=== PATIENT | female | born 1930 | race Caucasian/White ===

== ENCOUNTER 2018-01-18 16:07 | Inpatient (IN) | payer OTHER ==
[~2018-01-18] VITALS: Ht 157.5 cm; Wt 78.0 kg
[~2018-01-18 16:07] MED LIST: ALBUTEROL INHAL17 GM IH; ARICEPT10 M1 PO; ARICEPT10 MG PO; ASPIRIN325; ASPIRIN81 M2 PO; ATIVAN1 MG PO; AVELOX 400 MG400 MG PO; BIAXIN 250MG T250 MG PO; CALCIUM CARBON500 M3 PO; CARVEDILOL12.5 MG PO; COUMADIN 2 MG TA2 M1 PO; CRESTOR5 MG PO; CYMBALTA60 MG PO; ETODOLAC; FIRST-LANSO3 MG/1 ML; GABAPENTIN100 MG PO; HCTZ PO; LANSOPRAZOLE15 MG PO; LANSOPRAZOLE30 MG PO; LEXAPRO; LODINE XL500 MG PO; MINIPRIN81 MG PO; NAMENDA; NAMENDA 5 MG TAB5 M1 PO; NAMENDA10 MG/5 ML; NEURONTIN 300300 M1 PO; NORTRIPTYLINE H25 M3; NORTRIPTYLINE H25 M3 PO; PAIN & FEVER325 MG PO; PAMELOR25 MG PO; PREMARIN1.25 MG; PREMARIN1.25 MG PO; PREVACID 24HR15 MG; PREVACID 30MG C30 M1 PO; PREVACID30 M2 PO; TRAMADOL 50 MG50 MG PO; TUMS PO; VERAMYST10 GM; XANAX 0.25 MG0.25 MG; XANAX 0.25 MG0.25 MG PO; ZOFRAN ODT4 MG PO
[2018-01-18 16:12] VITALS: BP 128/71
[2018-01-18] MEDS ORDERED: ANTIVERT25 MG PO (16:25)
[2018-01-18] MEDS ORDERED: CRANBERRY 12,61 EACH PO (16:27)
[2018-01-18] MEDS ORDERED: THERA TEARS NU1 EACH PO (16:27)
[2018-01-18] MEDS ORDERED: VITAMIN D3400 UNIT PO (16:28)
[2018-01-18 16:31] LABS: URINE BILIRUBIN NEGATIVE (Negative); URINE BLOOD NEGATIVE (Negative); URINE CLARITY CLEAR; URINE COLOR YELLOW; URINE GLUCOSE-RANDOM NEGATIVE (Negative); URINE KETONES TRACE (Negative); URINE NITRITE-REFLEX NEGATIVE (Negative); URINE PROTEIN TRACE (Negative); URINE UROBILINOGEN 0.2 E.U./dl (0.2-1.0)
[2018-01-18 16:32] LABS: URINE LEUKOCYTES-REFLEX 3+ (Negative)
[2018-01-18 16:37] LABS: SQUAMOUS >10 Many /LPF (0-3)
[2018-01-18 16:38] LABS: BACTERIA-REFLEX 1-9 Few /HPF (None Seen); CRYSTALS None Seen /LPF (None Seen); MUCUS None Seen strn/LPF (None Seen)
[2018-01-18 16:39] LABS: HYALINE CASTS 0-3 Few /LPF (None Seen)
[2018-01-18 16:40] LABS: URINE RBC None Seen /HPF (0-2)
[2018-01-18 16:42] LABS: ABSOLUTE EOSINOPHILS 0.6 thou/uL (0.0-0.7); ABSOLUTE LYMPHOCYTES 2.3 thou/uL (0.8-5.3); ABSOLUTE MONOCYTES 0.8 thou/uL (0.0-1.2); ABSOLUTE NEUTROPHILS 10.2 thou/uL (1.6-8.1); BASOPHILS 0.2 %; EOSINOPHILS 4.1 %; HEMATOCRIT 37.9 % (37.0-47.0); HEMOGLOBIN 12.4 gm/dL (12.0-15.0); LYMPHOCYTES 16.6 %; MCH 30.3 pg (26.0-34.0); MCHC 32.6 g/dL (28.0-37.0); MCV 92.9 fL (80.0-100.0); MONOCYTES 5.8 %; MPV 8.7 fl. (7.2-11.1); NUCLEATED RBCS 0 /100WBC; PLATELET COUNT* 203 thou/uL (150-400); POLYS 73.3 %; RBC 4.08 mil/uL (4.20-5.00); RDW-CV 14.8 % (10.5-14.5); WBC 13.9 thou/uL (4.0-11.0)
[2018-01-18 16:52] LABS: ANION GAP 8 mmol/L (7-16); BUN 25 mg/dL (7-18); CALCIUM 8.8 mg/dL (8.5-10.1); CHLORIDE 100 mmol/L (98-107); CO2 29 mmol/L (21-32); GLUCOSE 83 mg/dL (70-99); SODIUM 137 mmol/L (136-145)
[2018-01-18 16:53] LABS: INR 3.3; PROTIME 31.6 Seconds (9.20-11.50)
[2018-01-18 16:54] LABS: APTT 61.1 Seconds (25.0-31.3)
[2018-01-18 17:02] LABS: ALBUMIN 3.4 g/dL (3.4-5.0); ALKALINE PHOSPHATASE 80 U/L (46-116); NT-PRO BRAIN NAT PEPTIDE 963 pg/mL (<300); SGOT 21 U/L (15-37); SGPT 21 U/L (30-65); TOTAL BILIRUBIN 0.5 mg/dL (<0.1-1.0); TOTAL PROTEIN 7.3 g/dL (6.4-8.2); TROPONIN-I LEVEL <0.06 ng/mL (<0.06)
[2018-01-18 19:28] VITALS: BP 155/86
[2018-01-18 21:44] VITALS: BP 159/76
[2018-01-18 23:40] VITALS: BP 149/79
[2018-01-19 03:58] VITALS: BP 166/79
[2018-01-19 05:00] LABS: ABSOLUTE EOSINOPHILS 0.5 thou/uL (0.0-0.7); ABSOLUTE MONOCYTES 0.6 thou/uL (0.0-1.2); ABSOLUTE NEUTROPHILS 5.9 thou/uL (1.6-8.1); BASOPHILS 0.1 %; HEMATOCRIT 35.1 % (37.0-47.0); HEMOGLOBIN 11.6 gm/dL (12.0-15.0); LYMPHOCYTES 22.2 %; MCH 30.6 pg (26.0-34.0); MCV 92.9 fL (80.0-100.0); MONOCYTES 6.7 %; MPV 9.2 fl. (7.2-11.1); NUCLEATED RBCS 0 /100WBC; PLATELET COUNT* 174 thou/uL (150-400); RBC 3.78 mil/uL (4.20-5.00); RDW-CV 14.4 % (10.5-14.5)
[2018-01-19 05:02] LABS: INR 3.4; PROTIME 32.1 Seconds (9.20-11.50)
[2018-01-19 05:15] LABS: CALCIUM 8.3 mg/dL (8.5-10.1); CREATININE 1.7 mg/dL (0.6-1.3); POTASSIUM 4.2 mmol/L (3.5-5.1)
[2018-01-19 07:34] VITALS: BP 155/81
[2018-01-19 11:19] VITALS: BP 189/78
--- NOTE | 2018-01-19 11:25 | EKG ---
[place] [address] ELECTROCARDIOGRAM REPORT Name: LUL KEBEDEJORITru Salmon Room: [address] ADM IN .R.#: [id number] Admission: 01/18/18 Attend Phys: Kevin James MD Discharge: Date of : 32 Report #: [id number] THIS REPORT FOR: //name// [facility] ED Test Date: 2018-01-18 Test Time: 16:40:38 Pat Name: MUKESH KEBEDE Department: Room: [facility] Gender: F Stemmer Machine: Jhon TOLLIVER : 1930 Requested By: Sincere Mariee Order Number: [id number] MD: Israel Maldonado Measurements Intervals [place] Rate: 79 P: 41 DE: 168 QRS: -52 QRSD: 111 T: 94 QT: 384 QTc: 441 Interpretive Statements Sinus rhythm early transition left axis LVH with IVCD, LAD and secondary repol abnrm Baseline wander in lead(s) V6 Compared to ECG 02/12/2014 13:07:54 no change Electronically Signed On 01-19-2018 11:25:05 CDT by Israel Maldonado [email or web address] <ELECTRONICALLY SIGNED> By: Israel Maldonado MD, FACC 01/19/18 1125 1640 1640 Israel Maldonado MD, FAC /EPI
[2018-01-19 16:07] VITALS: BP 117/56
[2018-01-19 21:45] VITALS: BP 154/70
[2018-01-19 23:39] VITALS: BP 172/78
[2018-01-20 03:09] VITALS: BP 139/58
[2018-01-20 04:31] LABS: ABSOLUTE EOSINOPHILS 0.2 thou/uL (0.0-0.7); ABSOLUTE LYMPHOCYTES 1.4 thou/uL (0.8-5.3); ABSOLUTE MONOCYTES 0.6 thou/uL (0.0-1.2); BASOPHILS 0.1 %; EOSINOPHILS 2.4 %; HEMATOCRIT 32.7 % (37.0-47.0); HEMOGLOBIN 10.5 gm/dL (12.0-15.0); LYMPHOCYTES 14.9 %; MCH 30.3 pg (26.0-34.0); MCHC 32.2 g/dL (28.0-37.0); MCV 94.2 fL (80.0-100.0); MONOCYTES 6.3 %; MPV 8.9 fl. (7.2-11.1); NUCLEATED RBCS 0 /100WBC; PLATELET COUNT* 169 thou/uL (150-400); POLYS 76.3 %; RBC 3.47 mil/uL (4.20-5.00); RDW-CV 14.6 % (10.5-14.5); WBC 9.1 thou/uL (4.0-11.0)
[2018-01-20 04:47] LABS: PROTIME 18.8 Seconds (9.20-11.50)
[2018-01-20 04:57] LABS: INR 1.9
[2018-01-20 05:08] LABS: ALBUMIN 2.8 g/dL (3.4-5.0); CALCIUM 8.1 mg/dL (8.5-10.1); CREATININE 1.5 mg/dL (0.6-1.3); POTASSIUM 4.2 mmol/L (3.5-5.1); TOTAL BILIRUBIN 0.3 mg/dL (<0.1-1.0); TOTAL PROTEIN 5.4 g/dL (6.4-8.2)
[2018-01-20 08:20] VITALS: BP 173/84
[2018-01-20 12:00] VITALS: BP 150/72
[2018-01-20 13:49] VITALS: BP 150/72
[2018-01-20] MEDS ORDERED: CIPRO250 M1 PO (13:56)
--- NOTE | 2018-01-30 17:26 | CON ---
[address] [address] CONSULTATION Name: MUKESH KEBEDE Room: [address].#: [id number] Admission: 01/18/18 Attend Phys: Kevin James MD Discharge: 01/20/18 Date of : 32 Report #: [id number] THIS REPORT FOR: //name// CC: Kevin Soriano Ash DATE OF SERVICE: 01/19/2018 HISTORY OF PRESENT ILLNESS: This is an 87-year-old female patient who was evaluated by me for any neurological etiology for the patient's generalized weakness. She indicated that she developed some bladder infection and she had generalized weakness. She is feeling much better and in fact feels back to her baseline. When this weakness was there, she felt pretty severely weak. She never had this kind of symptom before. She never had any focal symptoms. REVIEW OF SYSTEMS: Indicate she is admitted with urinary tract infection. She had some what she described as fluid in the legs. She was admitted with leukocytosis. She does have a kidney problem. She feels back to her baseline. I carried out her 14-point review of system and this was her relevant 14-point review of system. PAST MEDICAL HISTORY: Negative for this kind of problem. FAMILY HISTORY: Negative for early age stroke. SOCIAL HISTORY: She does not smoke. PHYSICAL EXAMINATION: Indicate she is alert. She is responsive. She can follow simple commands. Her memory is somewhat diminished, but she indicated that is her baseline. Cranial nerve examination 2-12 looks unremarkable. Her strength, sensation, reflexes looks totally symmetrical. There is no cerebellar sign. Cardiac examination is unremarkable. No respiratory difficulty or rhonchi. She is reasonably well-developed and nourished individual. She does not have any dysmorphic features of eyes, ears and face. She does not have any vision or hearing problem, which interfere with her activity. Her vital signs indicate a blood pressure 117/56, respirations 16, pulse is 92, temperature is 98.4. LABORATORY DATA: White count is 9.0. She did have a CT scan of the head, which is unremarkable. IMPRESSION: It would appear that the patient's symptoms were secondary to urinary tract infection and she is getting better. Her TSH is low and I will also suggest checking her B12 level. She does have other problems and does look like she is on some dementia medication. I did not address that and confine myself just to the generalized weakness she has. [place] [address] CONSULTATION Name: MUKESH KEBEDE Room: [address] IN [facility]#: [id number] Admission: 01/18/18 Attend Phys: Kevin James MD Discharge: 01/20/18 Date of : 32 Report #: [id number] desired, please call us back or refer her to whoever is prescribing her medication because they will have the record. The patient will prefer to do that. <ELECTRONICALLY SIGNED> By: Arpit Araya MD 01/30/18 1726 [id number] 194Arpit Araya MD /nt
== END 2018-01-20 14:50 | disposition home or self-care (01) | DRG 682 ==
LOC: M.ERS 16:07 → M.TBA-ER 17:10 → M.3W 17:10
PROVIDERS: Family Medicine; ADMIT Internal Medicine
DX: N17.9 Acute kidney failure, unspecified (principal); R65.11 Systemic inflammatory response syndrome (SIRS) of non-infectious origin with acute organ dysfunction; N39.0 Urinary tract infection, site not specified; E44.0 Moderate protein-calorie malnutrition; K21.9 Gastro-esophageal reflux disease without esophagitis; N18.9 Chronic kidney disease, unspecified; R26.9 Unspecified abnormalities of gait and mobility; E86.0 Dehydration; F32.9 Major depressive disorder, single episode, unspecified; F03.90 Unspecified dementia, unspecified severity, without behavioral disturbance, psychotic disturbance, mood disturbance, and anxiety; Z88.0 Allergy status to penicillin; Z88.2 Allergy status to sulfonamides; Z68.31 Body mass index [BMI] 31.0-31.9, adult; Z79.82 Long term (current) use of aspirin; Z79.01 Long term (current) use of anticoagulants; Z79.899 Other long term (current) drug therapy; Z90.710 Acquired absence of both cervix and uterus; Z87.19 Personal history of other diseases of the digestive system

== ENCOUNTER 2018-07-19 12:49 | Emergency (ER) | payer OTHER ==
[~2018-07-19] VITALS: Ht 160 cm; Wt 77.1 kg
[~2018-07-19 12:49] MED LIST changes: +ANTIVERT25 MG PO; +CIPRO250 M1 PO; +CRANBERRY 12,61 EACH PO; +THERA TEARS NU1 EACH PO; +VITAMIN D3400 UNIT PO
[2018-07-19 13:33] VITALS: BP 97/56
== END 2018-07-19 13:34 | disposition home or self-care (01) ==
LOC: M.ERS 12:49
DX: S61.412A Laceration without foreign body of left hand, initial encounter (principal); S80.11XA Contusion of right lower leg, initial encounter; K21.9 Gastro-esophageal reflux disease without esophagitis; F32.9 Major depressive disorder, single episode, unspecified; G62.9 Polyneuropathy, unspecified; F03.90 Unspecified dementia, unspecified severity, without behavioral disturbance, psychotic disturbance, mood disturbance, and anxiety; Z85.038 Personal history of other malignant neoplasm of large intestine; Z85.828 Personal history of other malignant neoplasm of skin; Z88.0 Allergy status to penicillin; Z88.2 Allergy status to sulfonamides; Z87.442 Personal history of urinary calculi; Z90.710 Acquired absence of both cervix and uterus; Z90.49 Acquired absence of other specified parts of digestive tract; W01.0XXA Fall on same level from slipping, tripping and stumbling without subsequent striking against object, initial encounter; Y93.89 Activity, other specified; Y92.89 Other specified places as the place of occurrence of the external cause; Y99.8 Other external cause status

== ENCOUNTER → 2018-12-25 | Outpatient (CLI) | payer OTHER | LOC: M.RAD 15:45 | DX: M25.561 Pain in right knee (principal); Z91.81 History of falling ==

== ENCOUNTER 2019-02-08 11:02 | Inpatient (IN) | payer OTHER ==
[~2019-02-08] VITALS: Ht 167.6 cm; Wt 75.4 kg
[2019-02-08 11:02] VITALS: BP 186/115
[~2019-02-08 11:02] MED LIST changes: -COUMADIN 2 MG TA2 M1 PO; +COUMADIN 4 MG TA4 M1 PO
[2019-02-08 11:19] LABS: URINE BILIRUBIN NEGATIVE (Negative); URINE BLOOD NEGATIVE (Negative); URINE CLARITY CLEAR; URINE COLOR YELLOW; URINE GLUCOSE-RANDOM NEGATIVE (Negative); URINE KETONES TRACE (Negative); URINE LEUKOCYTES-REFLEX NEGATIVE (Negative); URINE NITRITE-REFLEX NEGATIVE (Negative); URINE PROTEIN NEGATIVE (Negative); URINE SPECIFIC GRAVITY 1.015 (1.005-1.030); URINE UROBILINOGEN 0.2 E.U./dl (0.2-1.0)
[2019-02-08 11:22] LABS: ABSOLUTE BASOPHILS 0.1 thou/uL (0.0-0.2); ABSOLUTE EOSINOPHILS 0.1 thou/uL (0.0-0.7); ABSOLUTE LYMPHOCYTES 1.3 thou/uL (0.8-5.3); ABSOLUTE MONOCYTES 0.4 thou/uL (0.0-1.2); ABSOLUTE NEUTROPHILS 7.5 thou/uL (1.6-8.1); BASOPHILS 0.7 %; EOSINOPHILS 0.7 %; HEMATOCRIT 37.5 % (37.0-47.0); HEMOGLOBIN 12.1 gm/dL (12.0-15.0); LYMPHOCYTES 13.6 %; MCH 30.7 pg (26.0-34.0); MCHC 32.4 g/dL (28.0-37.0); MCV 94.9 fL (80.0-100.0); MPV 8.1 fl. (7.2-11.1); NUCLEATED RBCS 0 /100WBC; PLATELET COUNT* 218 thou/uL (150-400); RBC 3.95 mil/uL (4.20-5.00); WBC 9.3 thou/uL (4.0-11.0)
[2019-02-08 11:40] LABS: ALBUMIN 3.5 g/dL (3.4-5.0); ALKALINE PHOSPHATASE 68 U/L (46-116); ANION GAP 10 mmol/L (7-16); BUN 30 mg/dL (7-18); CALCIUM 9.6 mg/dL (8.5-10.1); CHLORIDE 106 mmol/L (98-107); CO2 27 mmol/L (21-32); CREATININE 1.5 mg/dL (0.6-1.3); GLUCOSE 104 mg/dL (70-99); LIPASE 1085 U/L (73-393); POTASSIUM 4.5 mmol/L (3.5-5.1); SGOT 34 U/L (15-37); SGPT 28 U/L (30-65); SODIUM 143 mmol/L (136-145); TOTAL BILIRUBIN 0.4 mg/dL (<0.1-1.0); TOTAL PROTEIN 7.1 g/dL (6.4-8.2); TROPONIN-I LEVEL <0.06 ng/mL (<0.06)
[2019-02-08 16:13] LABS: INR 2.5; PROTIME 25.1 Seconds (9.20-11.50)
[2019-02-08 17:12] VITALS: BP 184/76
[2019-02-08 17:13] VITALS: BP 144/81
[2019-02-08 19:00] LABS: AMP/METHAMP Negative (Negative); BARBITURATES Negative (Negative); BENZODIAZEPINES Negative (Negative); COCAINE Negative (Negative); METHADONE Negative (Negative); OPIATES Negative (Negative); PCP Negative (Negative); THC Negative (Negative)
[2019-02-08 20:00] VITALS: BP 141/81
[2019-02-09] VITALS: BP 162/83
[2019-02-09 05:15] LABS: ABSOLUTE LYMPHOCYTES 1.3 thou/uL (0.8-5.3); ABSOLUTE MONOCYTES 0.6 thou/uL (0.0-1.2); BASOPHILS 0.5 %; EOSINOPHILS 0.5 %; HEMATOCRIT 31.6 % (37.0-47.0); HEMOGLOBIN 10.4 gm/dL (12.0-15.0); MCH 31.3 pg (26.0-34.0); MCHC 32.9 g/dL (28.0-37.0); MONOCYTES 7.7 %; MPV 7.9 fl. (7.2-11.1); NUCLEATED RBCS 0 /100WBC; PLATELET COUNT* 217 thou/uL (150-400); POLYS 75.3 %; RBC 3.33 mil/uL (4.20-5.00); RDW-CV 16.2 % (10.5-14.5)
[2019-02-09 05:40] LABS: INR 2.4; PROTIME 24.1 Seconds (9.20-11.50)
[2019-02-09 05:49] LABS: ALKALINE PHOSPHATASE 54 U/L (46-116); ANION GAP 6 mmol/L (7-16); BUN 39 mg/dL (7-18); CALCIUM 8.7 mg/dL (8.5-10.1); CHLORIDE 108 mmol/L (98-107); CHOLESTEROL 136 mg/dL (<200); CO2 30 mmol/L (21-32); CREATININE 1.7 mg/dL (0.6-1.3); GLUCOSE 98 mg/dL (70-99); HDL CHOLESTEROL 57 mg/dL (>40); LDL CHOLESTEROL 57 mg/dL (<100); LIPASE 126 U/L (73-393); PHOSPHORUS* 4.1 mg/dL (2.5-4.9); POTASSIUM 4.1 mmol/L (3.5-5.1); SGOT 21 U/L (15-37); SGPT 25 U/L (30-65); SODIUM 144 mmol/L (136-145); TC:HDL 2.4 Ratio (Not establshd); TOTAL BILIRUBIN 0.3 mg/dL (<0.1-1.0); TRIGLYCERIDE 114 mg/dL (<150); VLDL 23 mg/dL (<40)
[2019-02-09 05:54] LABS: SERUM ASSESSMENT Clear
[2019-02-09 07:30] VITALS: BP 140/63
[2019-02-09 12:00] VITALS: BP 146/70
--- NOTE | 2019-02-09 12:29 | EKG ---
[place] [address] ELECTROCARDIOGRAM REPORT Name: MUKESH KEBEDE Room: [address] ADM IN [facility].#: [id number] Admission: 02/08/19 Attend Phys: Kevin James MD Discharge: Date of : 32 Report #: [id number] THIS REPORT FOR: //name// [facility] ED Test Date: 2019-02-08 Test Time: 11:08:26 Pat Name: MUKESH KEBEDE Department: Room: [facility] Gender: F Ripsaw Matcher: Shayne MESSINA : 1930 Requested By: Rekha Almeida Order Number: [id number] MD: Jarrell Hammer Measurements Intervals [place] Rate: 94 P: 60 IN: 163 QRS: -53 QRSD: 109 T: 97 QT: 354 QTc: 443 Interpretive Statements Sinus rhythm Left anterior fascicular block Abnormal R-wave progression, early transition LVH with secondary repolarization abnormality Compared to ECG 01/18/2018 16:40:38 Left anterior fascicular block now present Intraventricular conduction delay no longer present Electronically Signed On 02-09-2019 12:29:08 CDT by Jarrell Hammer [email or web address] <ELECTRONICALLY SIGNED> By: Jarrell Hammer MD, [facility] 02/09/19 1229 1108 1108 Jarrell Hammer MD, FAC /EPI
[2019-02-09 20:00] VITALS: BP 156/76
[2019-02-10 04:00] VITALS: BP 149/70
[2019-02-10 05:14] LABS: ABSOLUTE MONOCYTES 0.4 thou/uL (0.0-1.2); ABSOLUTE NEUTROPHILS 4.7 thou/uL (1.6-8.1); BASOPHILS 0.3 %; EOSINOPHILS 0.6 %; HEMATOCRIT 28.7 % (37.0-47.0); HEMOGLOBIN 9.4 gm/dL (12.0-15.0); LYMPHOCYTES 15.7 %; MCH 30.9 pg (26.0-34.0); MCHC 32.6 g/dL (28.0-37.0); MCV 94.6 fL (80.0-100.0); MPV 8.2 fl. (7.2-11.1); NUCLEATED RBCS 0 /100WBC; PLATELET COUNT* 178 thou/uL (150-400); POLYS 76.4 %; RBC 3.03 mil/uL (4.20-5.00); RDW-CV 15.8 % (10.5-14.5); WBC 6.2 thou/uL (4.0-11.0)
[2019-02-10 05:20] LABS: INR 2.9; PROTIME 29.4 Seconds (9.20-11.50)
[2019-02-10 05:44] LABS: ALBUMIN 2.8 g/dL (3.4-5.0); CALCIUM 8.3 mg/dL (8.5-10.1); CREATININE 1.6 mg/dL (0.6-1.3); POTASSIUM 4.2 mmol/L (3.5-5.1); TOTAL BILIRUBIN 0.2 mg/dL (<0.1-1.0); TOTAL PROTEIN 5.6 g/dL (6.4-8.2)
[2019-02-10 06:34] LABS: ESR (SEDRATE) 26 mm/hr (0-30)
[2019-02-10 07:30] VITALS: BP 152/72
[2019-02-10 12:52] VITALS: BP 152/72
--- NOTE | 2019-02-18 15:46 | CON ---
[address] [address] CONSULTATION Name: MUKESH KEBEDE Room: [address] IN M.R.#: [id number] Admission: 02/08/19 Attend Phys: Kevin James MD Discharge: 02/10/19 Date of : 32 Report #: [id number] THIS REPORT FOR: //name// CC: Kevin Roth Dejan DATE OF SERVICE: 02/09/2019 REFERRING PHYSICIAN: Kevin James MD REASON FOR CONSULTATION: Abdominal pain. IMPRESSION: 1. Upper abdominal pain of uncertain etiology. 2. Elevated lipase without any evidence to suggest pancreatitis on CT scan. 3. Anemia of chronic disease. 4. 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 5. Personal history of colon cancer in early , recurrent sigmoid resection with primary anastomosis with her last colonoscopy being done in 05/2014 - the patient had 18 tubular adenomas. She has not had surveillance examinations since that time. 6. Mild dementia. 7. Abnormal CAT scan suggestive of gallbladder sludge and/or stones within the same. RECOMMENDATIONS: 1. Agree with surgery to advance diet as tolerated. 2. We will check an abdominal ultrasound to monitor for possible cholelithiasis as this could be a source for her abdominal pain. 3. We will hold off on any endoscopic studies at this point in time including upper endoscopy, ERCP. 4. Further recommendation will be made after abdominal ultrasound is performed. I have discussed the plans with the patient as well and she is agreeable to the same; however, the patient has ___ her heart failure and going home tomorrow. HISTORY OF PRESENT ILLNESS: The patient is a pleasant 88-year-old white female well known to me from multiple evaluations in the past who was admitted to hospital with complaints of abdominal pain after she had eaten some spicy food from chipotle. She states that the pain was mostly in the epigastric area without any nausea, vomiting or any other issues. She has never had this kind of pain in the past. She has longstanding history of having a large hiatal hernia, which has not required surgical intervention. [place] [address] CONSULTATION Name: MUKESH KEBEDE Room: [address]#: [id number] Admission: 02/08/19 Attend Phys: Kevin James MD Discharge: 02/10/19 Date of : 32 Report #: [id number] of the same including upper endoscopies, which revealed evidence for the same. She has been seen by our practice as late as back in 2013. She has undergone endoscopic studies of upper and lower GI tract in the past, which have revealed evidence for the same. She is admitted to the hospital for further evaluation and treatment. ALLERGIES: PENICILLIN AND SULFA. MEDICATIONS: Include Aricept, Cymbalta, aspirin, Antivert, vitamin D, Coumadin, nortriptyline, Ami, Neurontin and TheraTears. PAST MEDICAL AND SURGICAL HISTORY: Remarkable for some dementia, anxiety, depression, problems with chronic atrial fibrillation. She has a history of appendectomy, hysterectomy. She had colon cancer as mentioned above with previous colon resection. She had a large hiatal hernia. She has also had blood clots in her legs and in her lung. SOCIAL HISTORY: She is a former smoker. She does not drink alcohol. FAMILY HISTORY: Negative. PHYSICAL EXAMINATION: GENERAL: Pleasant 87-year-old white female who is in no major distress at this time. CARDIOPULMONARY: Revealed a regular rate and rhythm. LUNGS: Clear. ABDOMEN: Soft. She was mildly tender in the epigastric area. No rebound or guarding noted. LABORATORY TESTS: Revealed a white count of 9.3, hemoglobin 12.1, platelet count 218,000. Her sodium 143, potassium 4.5, chloride 106, bicarbonate is 27, BUN 30, creatinine 1.5. Her bilirubin 0.4, alkaline phosphatase 68, AST 34, ALT 28, albumin is 3.5. Her lipase on admission was 1085. Protime is 25.1 with INR of 2.5. CT scan of the abdomen and pelvis revealed large area of most of her stomach up in the lower chest. Gallbladder extends due to suspected extensive small gallstones with nothing for biliary obstruction. The pancreas is partially coiled upon itself resulting in a "pancreatic ball" without any mass or inflammatory changes noted. The liver is enlarged. DISCUSSION: At the present time, the patient has had problems with what appears to be pancreatitis. We will proceed with an abdominal ultrasound to confirm whether or not she has stones or not and await her response to diet. I have [address] [address] CONSULTATION Name: MUKESH KEBEDE Room: [address] IN .R.#: [id number] Admission: 02/08/19 Attend Phys: Kevin James MD Discharge: 02/10/19 Date of : 32 Report #: [id number] discussed the plans with the patient as well and the patient is agreeable to the same. <ELECTRONICALLY SIGNED> By: Chuck Contreras DO 02/18/19 1546 1037 [id number] Contreras DO /nt
== END 2019-02-10 14:25 | disposition home or self-care (01) | DRG 439 ==
LOC: M.ERS 11:02 → M.TBA-ER 13:39 → M.2W 16:50
PROVIDERS: Internal Medicine Gastroenterology; Physician Assistant; Surgery; ADMIT Internal Medicine
DX: K85.90 Acute pancreatitis without necrosis or infection, unspecified (principal); N17.9 Acute kidney failure, unspecified; N18.4 Chronic kidney disease, stage 4 (severe); K21.9 Gastro-esophageal reflux disease without esophagitis; G62.9 Polyneuropathy, unspecified; F03.90 Unspecified dementia, unspecified severity, without behavioral disturbance, psychotic disturbance, mood disturbance, and anxiety; F32.9 Major depressive disorder, single episode, unspecified; K44.9 Diaphragmatic hernia without obstruction or gangrene; I12.9 Hypertensive chronic kidney disease with stage 1 through stage 4 chronic kidney disease, or unspecified chronic kidney disease; D63.8 Anemia in other chronic diseases classified elsewhere; K29.00 Acute gastritis without bleeding; K80.20 Calculus of gallbladder without cholecystitis without obstruction; Z90.710 Acquired absence of both cervix and uterus; Z90.49 Acquired absence of other specified parts of digestive tract; Z87.891 Personal history of nicotine dependence; Z85.038 Personal history of other malignant neoplasm of large intestine; Z88.0 Allergy status to penicillin; Z88.2 Allergy status to sulfonamides; Z79.82 Long term (current) use of aspirin; Z79.899 Other long term (current) drug therapy; Z83.79 Family history of other diseases of the digestive system; Z82.49 Family history of ischemic heart disease and other diseases of the circulatory system; Z83.6 Family history of other diseases of the respiratory system

== ENCOUNTER 2021-03-27 17:30 | Inpatient (IN) | payer OTHER ==
[~2021-03-27] VITALS: Ht 167.6 cm; Wt 75.4 kg
--- NOTE | ~2021-03-27 | OP ---
[address] [id number] OPERATIVE REPORT Name: MUKESH KEBEDE Room: [address] IN [facility]#: [id number] Admission: 03/27/21 Attend Phys: Kevin James MD Discharge: Date of : 32 Report #: [id number] THIS REPORT FOR: cc: Bo Aleman Bradley L. DO Kesl, James B. DO ~ DOC #: [id number] Bhavik Badillo DO DATE OF SURGERY: 03/29/2021 PREOPERATIVE DIAGNOSIS: Right displaced femoral neck fracture. POSTOPERATIVE DIAGNOSIS: Right displaced femoral neck fracture. PROCEDURE: Right hip arthroplasty. SURGEON: Bhavik Badillo DO ASSISTANTS: 1. Mark Gold DO 2. Tres Hollins DO 3. Sridhar Vidales DO. ANESTHESIA: General. ANTIBIOTICS: Ancef IV. FLUIDS: Please see anesthesia notes. BLOOD LOSS: 200 mL. COMPLICATIONS: None. SPECIMENS: None. DRAINS: None. CONDITION: The patient is stable to PACU. IMPLANTS: Patt Echo press-fit stem size 14 standard offset 46 bipolar head with +6 neck adaptor. INDICATIONS FOR PROCEDURE: Displaced femoral neck fracture. DESCRIPTION OF PROCEDURE: I marked the right lower extremity in the presence of operative team members, everyone agreed. She was taken back to the operative [address] [place] [address] OPERATIVE REPORT Name: MUKESH KEBEDE Room: [address] IN ..#: [id number] Admission: 03/27/21 Attend Phys: Kevin James MD Discharge: Date of : 32 Report #: [id number] suite, general anesthetic administered, transferred to the operating table, placed on to the left lateral decubitus position, well padded and secured. Right lower extremity was sterilely prepped and draped in standard fashion. Timeout performed, indicating correct patient, procedure, site, antibiotics and that implants were present and sterile. All team members agreed. Anterolateral approach used. Scalpel through skin, full thickness flaps down to the IT band and fascia. Charnley retractor placed. Fluids taken off the trochanter with a cuff of tissue for repair and also leaving some attached to the tip. Capsule as another layer. T capsulotomy leaving labrum undisturbed, cleaned up the neck, with a reciprocating saw one fingerbreadth above the lesser, removed head and neck. This appeared to be a standard appearance of osteoporotic fracture, sized on the back table as a 46, trialed 46, this was appropriate. Good fit within the acetabulum. Began preparing the femur, box osteotome, canal finder, broach for lateralization as well as sequential fit. After distal reaming, size 14 was appropriate standard offset based on preoperative templating. We knew that she would have a long neck due to her valgus appearance. We therefore began with a +3. This overall has had some okay stability, but leg lengths were still short. We therefore trialed a +6. This was appropriate for leg length, had no instability found whatsoever. We then removed all those trial components. The final 14 Echo press-fit stem was implanted after irrigation down the canal with normal saline, sat at the same location. We therefore placed a final +6 neck adaptor with 46 bipolar head and engaged the Currie taper. Final components in place, removed any debris or fluid from within the acetabulum, reduced the hip for the final time. With the final components in place, we took it through range of motion, it was excellent and stable throughout all planes. Leg lengths appeared equal. We irrigated with normal saline, confirmed hemostasis, maintained, began closure. Capsule closed with #1 Vicryl, gluteus closed with through-bone sutures, #5 Ti-Cron, oversewn with #1 Vicryl, fascia and IT band closed with #1 Vicryl and oversewn with #1 Stratafix, subcu with 2-0 Monocryl, skin with 3-0 Stratafix with Dermabond glue. Debriefing performed confirming procedure, blood loss and that all counts were correct and final team members agreed. A sterile silver dressing applied. She was transferred off the operating table supine on her bed, leg lengths were appropriate, abductor pillow placed, extubated and taken to PACU stable. POSTOPERATIVE COURSE AND EVALUATION: I have made attempts to contact the daughter who I had spoken with prior to surgery, did not get any answer, left voicemail, we will continue to call. The patient was resting in PACU, stable vital signs, pain controlled, neurovascularly intact, compartments are soft and compressible. No obvious signs of DVT. PACU films showed stable prosthesis in good position and alignment. No fracture or dislocation. Weightbear as tolerated, anterolateral hip precautions, PT and OT. She will resume warfarin, which will be good for her DVT prophylaxis as well as mechanical measures. COVID protocol followed at all times. [address] [address] OPERATIVE REPORT Name: DELIOMUKESH Salmon Room: [address]#: [id number] Admission: 03/27/21 Attend Phys: Kevin James MD Discharge: Date of : 32 Report #: [id number] DO CHAD Garcia By: [id number] Badillo DO /jeanie
--- NOTE | ~2021-03-27 | EMS ---
[place] [address] EMS Patient Care Report Name: MUKESH KEBEDE Room: [address] IN [facility]#: [id number] Admission: 03/27/21 Attend Phys: Kevin James MD Discharge: Date of : 32 Report #: [id number] THIS REPORT FOR: //name// Report Transmitted: 03/27/2021 19:18 EMS Care Summary [facility] [employer] [facility] Incident [id number] @ 03/27/2021 16:42 Incident Location [address] [place] [address] Patient MKUESH KEBEDE Female, 89 Years 1930 Patient Address [address] [place] [address] Patient Allergies Penicillin allergy,Sulfa, Patient Medications Warfarin, Chief Complaint Hip Pain subsequent to a fall from standing pos Disposition Transported No Lights/[place] Reason Falls Transported To [facility] Narrative [employer] was toned to the address stated for an 82 year old female who had fallen. Upon arrival, Ems found the patient on the floor in her dinning room laying on her right side. Patient's daughter is also on scene. Patient states " My right hip and leg hurt when I move, if I lay still I don't hurt." Patient is Alert and Oriented times four and has a GCS of 15, a patent airway and no apparent life threating bleeding or injuries. Upon physical assessment no deformities [facility] [address] [place] [address] EMS Patient Care Report Name: MUKESH KEBEDE Room: [place] [address] ADM IN .R.#: [id number] Admission: 03/27/21 Attend Phys: Kevin James MD Discharge: Date of : 32 Report #: [id number] are noted however there is pain on palpation noted to the right pelvic and femur. David vital signs are obtained on scene to reveal the patient is hypertensive, patient states " I normally have low blood pressure." when asked about past history. Daughter on scene witnessed the fall and states " She fell from a standing position, I believe she lost her balance at the transition from tile to carpet." Patient denies feeling weak or lightheaded prior to the fall and states "I just stumbled and lost my balance." Patient denies any stroke history and tells EMS she takes a blood thinner but is unable to tell EMS why she was prescribed the medication. The stretcher is brought into the residence and placed parallel to the patient and with three EMS providers the patient is lifted and moved to the stretcher patient requests to be placed in the same position (right recumbent) as it is most comfortable. Patient is secured to the cot via seatbelts and taken to the ambulance and loaded. Once loaded, patient is placed on the [place] 15 and a non emergent transport to [facility] begins. While enroute to the ER, vital signs are continuously monitored and the patient rests as comfortable as possible. A BGA is obtained at a value of 78. A [place] stroke scale is performed with negative result. When asked about daily medications the patient is on able to provide warfarin but states she takes all kinds of meds at different times of the day. Patient remains hypertensive and pain remains at an 8/10 throughout transport. [place] is contacted via radio and a verbal report is given with no questions or orders received. Med 1 arrives shortly after. Upon arrival to the ED, EMS leaves the tablet with the toddler caregiver for patient info and EMS is directed to room 16 where a verbal report is given to Leandra Thomas and transfer of care is made. Med 1 is released and [facility]. Nothing further at this time. END OF REPORT Israel Lambert EMT-B- [id number] Initial Vitals @17:12P: 81,BP: 200/111,Pain: 8/10,GCS: 15,SpO2: 93, @16:48P: 80,R: 15,BP: 180/90,Pain: 8/10,GCS: 15,SpO2: 96,Revised Trauma: 12, @17:00P: 79,R: 15,BP: 183/92,Pain: 8/10,GCS: 15,SpO2: 95,Revised Trauma: 12, @17:02P: 78,R: 15,BP: 185/106,Pain: 8/10,GCS: 15,Glucose: 78,SpO2: 95,Revised Trauma: 12, @17:07P: 80,R: 15,BP: 193/116,Pain: 8/10,GCS: 15,SpO2: 93,Revised Trauma: 12, @17:22P: 81,R: 14,BP: 204/110,Pain: 8/10,GCS: 15,SpO2: 94,Revised Trauma: 12, Assessments @17:19MENTAL:No Abnormalities,SKIN:Cold,Pale,HEENT:Eyes: Left Pupil: 4-mm,Eyes: Right Pupil: 4-mm,Head/Face: No Abnormalities,Neck/Airway: No Abnormalities,LUNG SOUNDS:General: No Abnormalities,ABDOMEN:General: No [facility] [address] [place] [address] EMS Patient Care Report Name: MUKESH KEBEDE Room: [address] IN [facility]#: [id number] Admission: 03/27/21 Attend Phys: Kevin James MD Discharge: Date of : 32 Report #: [id number] Abnormalities,PELVIS//GI:Pelvis Other,EXTREMITIES:Right Leg: Other,Left Arm: No Abnormalities,Right Arm: No Abnormalities,Left Leg: No Abnormalities,PULSE:Pedal: 2+ Normal,Radial: 2+ Normal,NEURO:No Abnormalities, Impression Injury of Hip Timeline 16:42,Call Received 16:42,Dispatched 16:45,En Route 16:47,At Patient 16:47,On Scene 16:48,BP: 180/90 M,PULSE: 80,RR: 15 R,SPO2: 96 Ox,ETCO2: ,BG: ,PAIN: 8,GCS: 15, 17:00,BP: 183/92 M,PULSE: 79,RR: 15 R,SPO2: 95 Ox,ETCO2: ,BG: ,PAIN: 8,GCS: 15, 17:02,Depart Scene 17:02,BP: 185/106 M,PULSE: 78,RR: 15 R,SPO2: 95 Ox,ETCO2: ,B,PAIN: 8,GCS: 15, 17:07,BP: 193/116 M,PULSE: 80,RR: 15 R,SPO2: 93 Ox,ETCO2: ,BG: ,PAIN: 8,GCS: 15, 17:12,BP: 200/111 M,PULSE: 81,RR: R,SPO2: 93 Ox,ETCO2: ,BG: ,PAIN: 8,GCS: 15, 17:22,BP: 204/110 M,PULSE: 81,RR: 14 R,SPO2: 94 Ox,ETCO2: ,BG: ,PAIN: 8,GCS: 15, 17:26,At Destination 17:28,Transfer Patient 17:54,Call Closed 17:54,In District Disclaimer v1.1 Copyright 2020 [employer] This EMS Care Summary contains data elements from the applicable legal record (which may be displayed differently). It is designed to provide pertinent information for the following purposes: continuity of care, clinical quality, and state data reporting. The complete legal record is available to ED staff and administrators of the receiving hospital in [employer] Patient Tracker. All data is provided "as is."
--- NOTE | ~2021-03-27 | CON ---
[address] [address] CONSULTATION Name: MUKESH KEBEDE Room: [address] IN [facility]#: [id number] Admission: 03/27/21 Attend Phys: Kevin James MD Discharge: Date of : 32 Report #: [id number] THIS REPORT FOR: cc: Bo Aleman Bradley L. DO Elia, Manana MD ~ DOC #: [id number] Vazquez Chamberlain MD DATE OF CONSULTATION: 03/30/2021 REASON FOR CONSULTATION: Regarding a history of DVT, question regarding anticoagulation. REQUESTING PHYSICIAN: Dr. Lombardi. HISTORY OF PRESENT ILLNESS: The patient is an 89-year-old woman who has a history of DVT and PE in the past, has been on chronic anticoagulation. She lives at home independently. She sustained a fall at home and sustained a right hip fracture. The patient was admitted to the hospital and consulted for question regarding need for long-term anticoagulation. She had surgery already. She is on Eliquis. She is lethargic, arousable, but cannot give me any history. PAST MEDICAL HISTORY: Significant for DVT and PE in 2012. The patient has been on Coumadin since 2012. I do not have any other documentation of other recurrent venous thrombosis. PAST SURGICAL HISTORY: Significant for hiatal hernia, history of recurrent pancreatitis. SOCIAL HISTORY: Lives at home. REVIEW OF SYSTEMS: Unable to obtain. FAMILY HISTORY: Unable to obtain. PHYSICAL EXAMINATION: GENERAL: Reveals an elderly female, not in acute distress, lethargic, arousable, but unable to give me history. VITAL SIGNS: Blood pressure 150/65, heart rate 94, temperature 99.3, respirations 18. HEENT: Mouth: Mucosa dry. NECK: Supple. HEART: Regular rhythm and rate. LUNGS: [place] [address] CONSULTATION Name: MUKESH KEBEDE Room: [address]#: [id number] Admission: 03/27/21 Attend Phys: Kevin James MD Discharge: Date of : 32 Report #: [id number] ABDOMEN: Soft. NEUROLOGIC: Mental status: See above. SKIN: There is no supraclavicular lymphadenopathy. Skin exam does not reveal large bruises. LABORATORY DATA: White count 14.4, hemoglobin 11.6, platelets 139. INR 1.0, PT 10.9, aPTT 61.8. ASSESSMENT AND PLAN: History of deep venous thrombosis, pulmonary embolism. I do not recommend long-term chronic anticoagulation. Risk of bleeding clearly outweigh benefits. I discussed this case with Dr. Lombardi. The patient is currently on Eliquis only for 2 weeks postop. I agree with this recommendation. I have recommended to discontinue Eliquis after 2 weeks course completely. Thank you very much for allowing me to participate in care of this patient. MD MARI Prasad/VANCE By: 2213 [id number] Chamberlain MD /nt
[2021-03-27 17:34] VITALS: BP 201/96
[2021-03-27 18:06] LABS: ABSOLUTE EOSINOPHILS 0.1 thou/uL (0.0-0.7); ABSOLUTE LYMPHOCYTES 1.6 thou/uL (0.8-5.3); ABSOLUTE MONOCYTES 0.4 thou/uL (0.0-1.2); ABSOLUTE NEUTROPHILS 5.6 thou/uL (1.6-8.1); BASOPHILS 0.6 %; EOSINOPHILS 1.3 %; HEMATOCRIT 38.4 % (37.0-47.0); HEMOGLOBIN 12.9 gm/dL (12.0-15.0); LYMPHOCYTES 20.2 %; MCH 32.1 pg (26.0-34.0); MCHC 33.6 g/dL (28.0-37.0); MCV 95.7 fL (80.0-100.0); MONOCYTES 5.4 %; MPV 7.9 fl. (7.2-11.1); NUCLEATED RBCS 0 /100WBC; PLATELET COUNT* 189 thou/uL (150-400); POLYS 72.5 %; RBC 4.01 mil/uL (4.20-5.00); RDW-CV 13.7 % (10.5-14.5); WBC 7.7 thou/uL (4.0-11.0)
[2021-03-27 18:13] LABS: CALCIUM 8.5 mg/dL (8.5-10.1); CREATININE 1.8 mg/dL (0.6-1.3); POTASSIUM 4.4 mmol/L (3.5-5.1)
[2021-03-27 18:54] LABS: INR 2.3; PROTIME 23.6 Seconds (9.20-11.50)
--- NOTE | 2021-03-27 21:04 | NUR ---
REPORT GIVEN TO SEBASTIEN HERNANDEZ.
[2021-03-27 21:18] VITALS: BP 153/76
[2021-03-27 22:00] VITALS: BP 181/83
[2021-03-28] VITALS (8 sets, daily range): BP systolic 166–192; BP diastolic 77–98
[2021-03-28 04:00] LABS: ABSOLUTE LYMPHOCYTES 1.4 thou/uL (0.8-5.3); ABSOLUTE MONOCYTES 0.7 thou/uL (0.0-1.2); ABSOLUTE NEUTROPHILS 7.7 thou/uL (1.6-8.1); BASOPHILS 0.2 %; EOSINOPHILS 0.2 %; HEMATOCRIT 35.7 % (37.0-47.0); HEMOGLOBIN 11.9 gm/dL (12.0-15.0); LYMPHOCYTES 14.5 %; MCH 32.5 pg (26.0-34.0); MCHC 33.5 g/dL (28.0-37.0); MCV 97.1 fL (80.0-100.0); MONOCYTES 6.8 %; MPV 8.1 fl. (7.2-11.1); NUCLEATED RBCS 0 /100WBC; PLATELET COUNT* 174 thou/uL (150-400); POLYS 78.3 %; RBC 3.67 mil/uL (4.20-5.00); RDW-CV 14.1 % (10.5-14.5); WBC 9.8 thou/uL (4.0-11.0)
[2021-03-28 04:11] LABS: INR 2.3; PROTIME 23.5 Seconds (9.20-11.50)
[2021-03-28 04:13] LABS: CALCIUM 8.6 mg/dL (8.5-10.1); CREATININE 1.8 mg/dL (0.6-1.3); POTASSIUM 4.9 mmol/L (3.5-5.1)
--- NOTE | 2021-03-28 07:44 | NUR ---
Admit last evening at 0. She has a rt hip fracture and had pain 10/10. She has IV fentanyl for pain. Order recieved for 1X dose of dilaudid which did help and her pain decreased to 8/10. This am she requested pain med and her pain level was 7/10. She did sleep well after midnight. Order was recieved for navarrete cath to DD. Her right leg is internally rotated but has good pedal pulses. She has had nothing by mouth since midnight. She has a INR of 2.3 this am and ortho resident said they wanted it 1.[address] James notified and he stated that he would look at it this am.
[2021-03-28 09:08] LABS: INR 2.3; PROTIME 23.5 Seconds (9.20-11.50)
[2021-03-28 12:32] LABS: INR 1.7; PROTIME 17.6 Seconds (9.20-11.50)
--- NOTE | 2021-03-28 14:17 | EKG ---
[place] [address] ELECTROCARDIOGRAM REPORT Name: IVETTELUL JAINMUKESH Viky Room: [address] ADM IN [facility]#: [id number] Admission: 03/27/21 Attend Phys: Kevin James, Discharge: Date of : 34 Date of Service: 03/27/21 180 Report #: [id number] THIS REPORT FOR: //name// [facility] ED Test Date: 2021-03-27 Test Time: 18:01:04 Pat Name: MUKESH KEBEDE Department: Room: [facility] Gender: F Other Sales Support Worker: CD : 1930 Requested By: Erick Valadez Order Number: [id number] MD: Damian Alejandro Measurements Intervals [place] Rate: 82 P: 105 IA: 226 QRS: -54 QRSD: 130 T: 95 QT: 414 QTc: 484 Interpretive Statements Sinus rhythm Prolonged IA interval Nonspecific IVCD with LAD Abnrm T, consider ischemia, anterolateral lds Artifact in lead(s) I,III,aVR,aVL Compared to ECG 02/08/2019 11:08:26 First degree AV block now present Electronically Signed On 03-28-2021 14:17:35 CDT by Damian Alejandro [email or web address] <ELECTRONICALLY SIGNED> By: Damian Alejandro MD, [facility] 03/28/21 1417 00 00 Damian Alejandro MD, [facility] /EPI
--- NOTE | 2021-03-28 16:50 | NUR ---
FF - PLASMA INFUSING TO PATIENT'S LEFT FOREARM WITHOUT COMPLICATIONS. VITAL SIGNS NORMAL. PATIENT TOLERATING PROCEDURE WITHOUT DIFFICULTIES. WILL CONTINUE TO MONITOR.
--- NOTE | 2021-03-28 17:37 | NUR ---
1722: PLASMA FINISHED INFUSING. PATIENT TOLERATED INFUSING WITHOUT COMPLICATIONS. VITAL SIGNS WNL. WILL CONTINUE TO MONITOR.
--- NOTE | 2021-03-28 17:49 | NUR ---
PATIENT RESTING IN BED. IV TO LEFT FOREARM INFUSTING NORMAL SALINE INFUSING AT 80ML/HRS. ALERT AND ORIENTED X4. 2 UNITS OF PLASMA INFUSED, PATIENT TOLERATED WITHOUT COMPLICATIONS. INR PENDING. VITAL SIGNS WNL. C/O PAIN TO RIGHT UPPER LEG, FENTALY X3 GIVEN. BED IN LOW/LOCKED POSTION. CALL LIGHT WITHIN REACH. BED ALARM ON. ALL QUESTIONS AND CONCERNS ADDRESSED.
[2021-03-28 18:00] LABS: INR 1.5; PROTIME 15.4 Seconds (9.20-11.50)
[2021-03-29] VITALS: BP 111/66
[2021-03-29 04:38] LABS: INR 1.2
[2021-03-29 04:44] VITALS: BP 189/93
--- NOTE | 2021-03-29 07:49 | NUR ---
PATIENT TRANSFERED TO PRE-OP AT THIS TIME VIA BED, ACCOMPANIED BY PACU NURSE.
--- NOTE | 2021-03-29 07:53 | NUR ---
Alert and oriented x 4. She was very tearful at the start of the shift. She was in a lot of pain. Fentanyl was given but it didn't help her pain. Orders recieved and now her pain control is better. She did want to speak with her daughter Moriah but the phone number we had was not correct. I did call her other daughter Vivi and did get Moriah's corrected phone number. Vivi said that Moriah was probably sleeping at that time. Today's INR was 1.2 so she has been NPO since midnight and she was taken to surgery. Myself and another nurse did speak with Moriah Abarca who is Nathalie's DPOA and daughter gave verbal consent for her surgery. Myself and the other RN did sign the consent form. Patient is oriented x 4 and is also agreeable to having the surgery. She did just leave the unit to surgery.
[2021-03-29 08:05] VITALS: BP 189/93
[2021-03-29 09:43] LABS: CALCIUM 8.9 mg/dL (8.5-10.1); CREATININE 1.4 mg/dL (0.6-1.3); POTASSIUM 4.3 mmol/L (3.5-5.1)
--- NOTE | 2021-03-29 09:45 | NUR ---
03/28/21 1040: INFUSING 1 UNIT OF FFPLASMA AT THIS TIME. VITAL SIGNS WNL. PATIENT TOLERATING PROCEDURE WITHOUT COMPLICATIONS. WILL CONTINUE TO MONITOR.
--- NOTE | 2021-03-29 13:32 | EKG ---
[place] [address] ELECTROCARDIOGRAM REPORT Name: MUKESH KEBEDE Room: [address] ADM IN ..#: [id number] Admission: 03/27/21 Attend Phys: Kevin James, Discharge: Date of : 34 Date of Service: 03/27/211832 Report #: [id number] THIS REPORT FOR: //name// [facility] ED Test Date: 2021-03-27 Test Time: 18:33:07 Pat Name: MUKESH KEBEDE Department: Room: [address] Gender: F Door Captain: TL STUDENT : 1930 Requested By: Erick Valadez Order Number: [id number] Reading MD: Israel Maldonado Measurements Intervals [place] Rate: 81 P: 56 [place]: 192 QRS: -58 QRSD: 130 T: 90 QT: 399 QTc: 464 Interpretive Statements Sinus rhythm Left bundle branch block Compared to ECG 03/27/2021 18:32:05 No significant changes Electronically Signed On 03-29-2021 13:32:34 CDT by Israel Maldonado [email or web address] <ELECTRONICALLY SIGNED> By: Israel Maldonado MD, [facility] 03/29/21 1332 183 183 Israel Maldonado MD, [facility] /EPI
--- NOTE | 2021-03-29 13:32 | EKG ---
[place] [address] ELECTROCARDIOGRAM REPORT Name: LUL KEBEDEJORITru Salmon Room: [address] ADM IN .R.#: [id number] Admission: 03/27/21 Attend Phys: Kevin James, Discharge: Date of : 34 Date of Service: 03/27/211831 Report #: [id number] THIS REPORT FOR: //name// [facility] ED Test Date: 2021-03-27 Test Time: 18:32:05 Pat Name: MUKESH KEBEDE Department: Room: [address] Gender: F Continuous Improvement Black Belt: TL STUDENT : 1930 Requested By: Erick Valadez Order Number: [id number] Reading MD: Israel Maldonado Measurements Intervals [place] Rate: 82 P: 40 DE: 186 QRS: -58 QRSD: 125 T: 92 QT: 397 QTc: 464 Interpretive Statements Sinus rhythm left axis early transition LEFT VENTRICULAR HYPERTROPHY with repolarization Compared to ECG 03/27/2021 18:01:04 no change Electronically Signed On 03-29-2021 13:32:17 CDT by Israel Maldonado [email or web address] <ELECTRONICALLY SIGNED> By: Israel Maldonado MD, [facility] 03/29/21 1332 31 31 Israel Maldonado MD, [facility] /EPI
--- NOTE | 2021-03-29 14:04 | NUR ---
Pt out of room at surgery when CM went to assess, will f/u. Per chart. Pt resides at home with her dtr. Normally independent. Pt has a cane and walker that she can use for mobility. Plan PT/OT evals. ARU consult. Will need heparin coumadin bridge prior to dc, anticipate dc in a few days.
[2021-03-29 16:27] VITALS: BP 139/66
--- NOTE | 2021-03-29 17:24 | NUR ---
PATIENT RESTING IN BED. INCISION TO RIGHT THIGH, UNABLE TO ACCESS DUE TO DRESSING. PER PACU NURSE, SUTURES, AND SKIN GLUE TO INCISION COVERED WITH MEPILEX. DRESSING C/D/I. FOOT SCD'S INPLACE, INFLATING/DEFLATING WITHOUT COMPLICATIONS. PARK HOSE ON BILATERALLY. RESENDIZ SECURED INPLACE, TO DEPENDENT DRAINAGE. SAT 94% ON 2L OXYGEN, NASAL CANNULA. C/O PAIN. FENTANYL X2 GIVEN. NO QUESTINS OR CONCERNS VOICED.
[2021-03-29 20:00] VITALS: BP 155/81
[2021-03-29 23:31] VITALS: BP 147/75
--- NOTE | 2021-03-30 04:39 | NUR ---
PT HAS RESENDIZ IN PLACE, GOOD CLEAR YELLOW OUTPUT, SHE IS ALERT AND ORIENTED BUT HARD OF HEARING. OXYCODONE GIVEN FOR PAIN UPON REQUEST. SCD'S, PARK HOSE AND ICE PACK IN PLACE. SHE HAS TOTAL HIP PRECAUTIONS WELL. ENCOURAGED USE OF INCENTIVE SPIROMETER. 2L-02. SHE WAS ABLE TO SLEEP MOST ALL THIS SHIFT. SHE RECEIVED MEDS/FLUIDS SCHEDULED.
[2021-03-30 04:48] LABS: CALCIUM 8.8 mg/dL (8.5-10.1); CREATININE 1.6 mg/dL (0.6-1.3); MAGNESIUM 1.7 mg/dL (1.8-2.4); POTASSIUM 4.4 mmol/L (3.5-5.1); TOTAL BILIRUBIN 0.4 mg/dL (<0.1-1.0); TOTAL PROTEIN 6.3 g/dL (6.4-8.2)
[2021-03-30 05:52] LABS: HEMOGLOBIN 11.6 gm/dL (12.0-15.0); MCH 31.7 pg (26.0-34.0); MCHC 32.1 g/dL (28.0-37.0); MCV 98.7 fL (80.0-100.0); MPV 8.2 fl. (7.2-11.1); RBC 3.64 mil/uL (4.20-5.00); RDW-CV 14.2 % (10.5-14.5); WBC 14.8 thou/uL (4.0-11.0)
[2021-03-30 06:03] LABS: PROTIME 10.9 Seconds (9.20-11.50)
[2021-03-30 07:59] VITALS: BP 150/65
[2021-03-30 11:31] VITALS: BP 132/56
--- NOTE | 2021-03-30 13:15 | NUR ---
THIS HEAVY EQUIPMENT PLUMBING SUPERVISOR AGREES WITH DOCUMENTED EVALUATION AND RECOMMENDATIONS BY SEAN ROLDAN. CANDY FELIZT
[2021-03-30 16:00] VITALS: BP 118/56
--- NOTE | 2021-03-30 18:29 | NUR ---
PATIENT IS ALERT TO SELF AND HAS BEEN EXTREMELY DROWSY SINCE RECEIVING TWO TABLETS OF OXYCODONE THIS MORNING. DR. ABDULLAHI NOTIFIED AND DOSAGE HAS BEEN DECREASED. PATIENT'S VITALS HAVE BEEN STABLE. PATIENT CURRENLTY LYING IN BED WITH EYES CLOSED, APPEARS TO BE SLEEPING, RESPIRATIONS EVEN AND UNLABORED, NO DISTRESS NOTED. BED ALARM ON FOR PATIENT SAFETY. URINARY CATHETER TO DD, LIGHT YELLOW URINE IN COLLECTION BAG. CALL LIGHT AND FREQUENTLY USED ITEMS WITHIN REACH.
[2021-03-30 20:15] VITALS: BP 125/62
[2021-03-31 00:38] VITALS: BP 132/62
[2021-03-31 04:00] VITALS: BP 128/65
[2021-03-31 04:35] LABS: INR 1.1; PROTIME 11.4 Seconds (9.20-11.50)
--- NOTE | 2021-03-31 06:51 | NUR ---
PT SLEEPING OVERNIGHT, AWAKENS WITH CARES, KEEPS EYES CLOSED BUT WILL ANSWER SIMPLE QUESTIONS AND TAKES PILLS WITH APPLESAUCE. AO TO SELF, CALM. O2 2L. RFA IVF INFUSING PER PUMP. LFA SL. ABDUCTOR PILLOW IN PLACE BETWEEN LEGS. RHIP DRSG CDI. RESENDIZ DRAINING YELLOW URINE. PARK HOSE BLE. SCD FOOT PUMPS ON AND OPERATING OVERNIGHT. PT TURNED AND REPOSITIONED Q2 HOURS AND PRN FOR SKIN CARE AND COMFORT. AM LAB. CALL LITE IN EASY REACH, BED ALARM ON FOR SAFETY.
[2021-03-31 08:00] VITALS: BP 125/53
--- NOTE | 2021-03-31 08:41 | NUR ---
Pt sleepy yesterday. Dtr and son in room. Jose Alfredo (son) [phone]. Pt resides at home with dtr, normally independent. Per dtr, Pt will have help at home post ARU if insurance authorizes. Therapies to work with.
--- NOTE | 2021-03-31 13:15 | NUR ---
Pt altered d/t pain meds. Sleepy. Therapies to see today. ARU consult pending
[2021-03-31 16:33] VITALS: BP 131/55
[2021-03-31 20:00] VITALS: BP 128/62
--- NOTE | 2021-03-31 20:06 | NUR ---
PT RESTING ON BED AND HAS BEEN SLEEPING OFF AND ON DURING THE DAY. PT MORE ALERT TODAY AND SHE STAYED AWAKE LONGER AND ATE BETTER TODAY. VSS AFEBRILE. WILL CONTINUE TO MONITOR PLANM OF CARE.
[2021-04-01 04:03] LABS: PROTIME 10.8 Seconds (9.20-11.50)
--- NOTE | 2021-04-01 05:28 | NUR ---
PATIENT SLEPT WELL DURING THIS SHIFT. PT ALERT/ORIENTED X2, CONFUSED AND FORGETFUL. PT ON O2 @ 2 LITERS PER NASAL CANNULA. PT WITH RESENDIZ TO DEPENDENT DRAIN WITH YELLOW URINE. PT TURNED Q2H PER PROTOCAL. PT TAKES PILLS WHOLE IN APPLESAUCE. FREQUENTLY USED ITEMS AND CALL LIGHT WITHIN REACH. SIDERAILS UPX3 AND BED ALARM ON. WILL CONTINUE TO MONITOR.
[2021-04-01] MEDS ORDERED: ELIQUIS5 MG PO (07:55)
[2021-04-01 08:00] VITALS: BP 165/78
--- NOTE | 2021-04-01 13:48 | NUR ---
CM spoke with dtr and son, continue to want ARU. Per ARU, do not believe that Pt would be able to tolerate 3hrs/day of therapy and are recommending SNF. CM to discuss SNF options with Pt/family.
--- NOTE | 2021-04-01 18:31 | NUR ---
PT UP TO CHAIR TODAY AND MORE ALERT TODAY. PT DR HERE AND CHANGED MEDICATIONS AROUND. PT FED HERSELF LUNCH AND BREAK FAST. FAMILY HERE TO SEE PT. VSS AFEBRILE. PT CONTINUES TO HAVE A RESENDIZ CATH POST SURGERY. WILL CONTINUE TO MONITOR PLAN OF CARE.
[2021-04-01 20:00] VITALS: BP 156/68
--- NOTE | 2021-04-02 05:03 | NUR ---
PT A&O X 4, FORGERFUL AT TIMES. ON 2L. PILLS GIVEN WITH APPLE SAUCE. RESENDIZ IN PLACE. CALL LIGHT WITHIN REACH. TURNS, HOURLY ROUNDINGS DONE. IVF INFUISING. WILL CONTINUE TO MONITOR.
[2021-04-02 07:22] LABS: HEMATOCRIT 24.8 % (37.0-47.0); HEMOGLOBIN 8.5 gm/dL (12.0-15.0); MCH 32.8 pg (26.0-34.0); MCHC 34.4 g/dL (28.0-37.0); MCV 95.4 fL (80.0-100.0); MPV 8.4 fl. (7.2-11.1); RBC 2.6 mil/uL (4.20-5.00); RDW-CV 13.7 % (10.5-14.5); WBC 9.1 thou/uL (4.0-11.0)
[2021-04-02 07:30] LABS: CALCIUM 8.5 mg/dL (8.5-10.1); CREATININE 1.2 mg/dL (0.6-1.3); POTASSIUM 3.6 mmol/L (3.5-5.1)
[2021-04-02 07:31] LABS: PROTIME 10.5 Seconds (9.20-11.50)
[2021-04-02 07:55] VITALS: BP 172/79
[2021-04-02 16:00] VITALS: BP 170/76
--- NOTE | 2021-04-02 17:40 | NUR ---
PATIENT RESTING IN BED. PATIENT UP WAS MAX ASSIST. PATIENT WORKED WITH THERAPY THIS AM. PATIENT UP TO CHAIR THIS AM. PATIENT IS ALERT AND ORIENTED THIS EVENING. PATIENT HAS GOOD APPETITE. TYLENOL GIVEN FOR PAIN X 1. PATIENT DENIES ANY FURTHER NEEDS AT THIS TIME. CALL LIGHT WITHIN REACH.
[2021-04-02 21:30] VITALS: BP 152/60
[2021-04-03 00:10] VITALS: BP 153/67
[2021-04-03 04:10] VITALS: BP 163/80
[2021-04-03 04:16] LABS: CREATININE 1.3 mg/dL (0.6-1.3); POTASSIUM 3.2 mmol/L (3.5-5.1)
[2021-04-03 04:18] LABS: PROTIME 10.3 Seconds (9.20-11.50)
[2021-04-03 04:31] LABS: HEMATOCRIT 23.3 % (37.0-47.0); HEMOGLOBIN 7.9 gm/dL (12.0-15.0); MCH 31.9 pg (26.0-34.0); MCHC 33.9 g/dL (28.0-37.0); MPV 8.3 fl. (7.2-11.1); RBC 2.48 mil/uL (4.20-5.00); RDW-CV 13.8 % (10.5-14.5)
--- NOTE | 2021-04-03 07:17 | NUR ---
PATIENT HAS SLEPT WELL THROUGHOUT THE NIGHT. VSS ON 2L 02 VIA NASAL CANNULA. PATIENT PLACE ON 2L OF OXYGEN IN THE AM D/T LOW OXYGEN SATURATION OF 90%. DRESSING TO RIGHT HIP IS INTACT. PARK HOSE AND SCD'S IN PLACE. RESENDIZ TO DEPENDENT DRAINAGE WITH YELLOW URINE OUTPUT. IV IN RIGHT FOREARM-NS @ 80ML/HR. FALL PRECAUTIONS IN PLACE AND HOURLY ROUNDS MADE. WILL CONTINUE WITH PLAN OF CARE AND NURSING TO MONITOR.
[2021-04-03 08:00] VITALS: BP 156/66
[2021-04-03 17:13] VITALS: BP 143/85
--- NOTE | 2021-04-03 19:43 | NUR ---
Pt reamined A&O x4. Vital signs stable. Pt pleasant with staff. Pt states pain is well managed. Hip precautions maintained. Bed in low position, call light within reach.
[2021-04-03 20:36] VITALS: BP 167/83
[2021-04-04 03:38] LABS: CALCIUM 8.2 mg/dL (8.5-10.1); CREATININE 1.3 mg/dL (0.6-1.3); POTASSIUM 3.4 mmol/L (3.5-5.1)
[2021-04-04 03:56] LABS: HEMATOCRIT 24.5 % (37.0-47.0); HEMOGLOBIN 8.3 gm/dL (12.0-15.0); MCHC 33.8 g/dL (28.0-37.0); MCV 94.7 fL (80.0-100.0); MPV 8.3 fl. (7.2-11.1); RBC 2.59 mil/uL (4.20-5.00); RDW-CV 13.6 % (10.5-14.5)
--- NOTE | 2021-04-04 04:41 | NUR ---
PT ALERT AND ORIENTED, REPORTED NO PAIN THIS SHIFT, RECEIVED ALL MEDS SCHEDULED. RESENDIZ HAS GOOD YELLOW URINE OUTPUT, 2L-NC PRN, PARK RAMÍREZ, SCD'S IN PLACE. SKIN DRY AND INTACT, LAST BM 04/01. SHE RECEIVED ALL MEDS SCHEDULED. HIP PRECAUTIONS IN PLACE, SHE DID NOT GET UP AT ALL THIS SHIFT AND SLEPT ALL NIGHT.
[2021-04-04 07:55] VITALS: BP 160/86
--- NOTE | 2021-04-04 19:16 | NUR ---
Pt reamined A&O x4 for entire shift. Vital signs stable. Pt pleasant with staff. Meds given per DEC. Q2 turns completed. Pt worked with physical therapy today to get to the chair. Pt needed extensive assistance getting back into bed. Hourly rounding completed. Bed in low postion, bed/chair alarm on, call light within reach.
[2021-04-04 20:21] VITALS: BP 188/90
--- NOTE | 2021-04-05 04:20 | NUR ---
PT REPORTED NO PAIN THIS SHIFT, NO REQUESTS FOR ANY PAIN MEDICATION. TYLENOL GIVEN AT BEDTIME. SHE RECEIVED ALL MEDS SCHEDULED EXCEPT FLUIDS. SHE HAS SLEPT WELL ALL SHIFT, REFUSING MOST TURNS. ICE PACK ON HIP. FOOT PUMPS IN PLACE, HOB ELEVATED, ROOM AIR. SHE IS MAX ASSIST OUT OF BED, SHE DID NOT GET UP THIS SHIFT. WILL CONTINUE TO MONITOR.
[2021-04-05 05:01] LABS: HEMATOCRIT 23.5 % (37.0-47.0); MCH 32.1 pg (26.0-34.0); MCHC 34.2 g/dL (28.0-37.0); MCV 93.9 fL (80.0-100.0); MPV 7.8 fl. (7.2-11.1); RBC 2.5 mil/uL (4.20-5.00); RDW-CV 13.7 % (10.5-14.5); WBC 8.3 thou/uL (4.0-11.0)
[2021-04-05 05:05] LABS: CALCIUM 8.4 mg/dL (8.5-10.1); CREATININE 1.5 mg/dL (0.6-1.3); POTASSIUM 3.4 mmol/L (3.5-5.1)
--- NOTE | 2021-04-05 12:12 | NUR ---
Nutrition: Pt admitted with femoral FX. Seen for LOS. Wt: 166#. Albumin 3. Regular diet ordered. PMHx: GERD, dementia, neuropathy. Pt was soundly sleeping at time of visit this morning. No nutrition concerns at this time. Low risk.
--- NOTE | 2021-04-05 12:47 | NUR ---
Pt doing better with therapies, but still too low level for ARU at this time. SNF referral to be faxed to [facility] and [facility]. CM to updated family.
--- NOTE | 2021-04-05 13:01 | NUR ---
REFERRAL PACKET FAXED TO [facility] ([phone]) WAITING ON APPROVAL. [facility] ([phone]) CM CONTINUE TO FOLLOW FOR SAFE D/C PLANNING.
[2021-04-05 16:45] VITALS: BP 168/76
--- NOTE | 2021-04-05 17:02 | NUR ---
PATIENT RESTING IN BED. INCISION TO RIGHT HIP, UNABLE TO ASSESS DUE TO DRESSING. DRESSING C/D/I. ICE TO RIGHT HIP. IV TO RIGHT FOREARM, PATENT, SALINE LOCKED. C/O PAIN/DISCOMFORT. TYLENOL AND TRAMADOL X1 GIVEN. RESENDIZ SECURELY INPLACE, TO DEPENDENT DRAINAGE WITHOUT COMPLICATIONS. TOLERATING ROOM AIR. PARK HOSE IN PLACE. FEET SCD'S INPLACE, INFLATING/DEFLATING WITHOUT DIFFICULTIES. BED IN LOW/LOCKED POSITON. CALL LIGHT WITHIN REACH. BED ALARM ON. NO QUESTIONS OR CONCERNS VOICED.
[2021-04-05 20:00] VITALS: BP 172/80
--- NOTE | 2021-04-06 04:40 | NUR ---
PATIENT SLEPT WELL DURING THIS SHIFT. PT ASSISTED WITH TURNS Q2H PER PROTOCAL. PT WITH SALINE LOCKS; PATENT. DENIES NEED FOR PAIN MEDICATION DURING THIS SHIFT WHEN OFFERED. PT WITH YELLOW URINE IN RESENDIZ CATHETER. FREQUENTLY USED ITEMS AND CALL LIGHT WITHIN REACH. SIDERAILS UPX3 AND BED ALARM ON. WILL CONTINUE TO MONITOR.
[2021-04-06 08:00] VITALS: BP 145/75
--- NOTE | 2021-04-06 09:11 | NUR ---
[facility] SPOKE TO REPSahra OLIVA STATED PT. IS CURRENTLY UNDER REVIEW, SHOULD RECEIVE A CALL THIS AFTERNOON WITH AN UPDATE ON STATUS. CM TO CONTINUE TO FOLLOW FOR SAFE D/C PLANNING.
--- NOTE | 2021-04-06 12:12 | NUR ---
Continue to await insurance auth for skilled at [place]. Updated Pt and family today.
--- NOTE | 2021-04-06 13:33 | NUR ---
FAXED UPDATED NOTES AND CLINICALS TO [facility] AT [facility] ([phone]) [facility] ([phone]) AWAITING APPROVAL. CM TO CONTINUE TO FOLLOW FOR SAFE D/C PLANNING.
[2021-04-06 15:55] VITALS: BP 137/69
--- NOTE | 2021-04-06 16:58 | NUR ---
PATIENT RESTING IN BED. INCISION TO RIGHT HIP/THIGH, UNABLE TO ASSESS DUE TO DRESSING. DRESSING C/D/I. RESENDIZ SECURELY INPLACE, TO DEPENDENT DRAINAGE. UP TO RECLINER X1 WITH 2 ASSIST. ALERT AND ORIENTED X2. PARK RAMÍREZ INPLACE. FEET SCD'S INPLACE, INFLATING/DEFLATING WITHOUT DIFFICULTIES. WOUND TO LEFT LEG, DRESSING C/D/I. IV TO RIGHT FOREARM, SALINE LOCK. DRESSING C/D/I. BED IN LOW/LOCKED POSITION. BED ALARM ON. CALL LIGHT WITHIN REACH. ALL QUESTIONS AND CONCERNS ADDRESSED.
[2021-04-06 20:00] VITALS: BP 149/82
--- NOTE | 2021-04-07 04:37 | NUR ---
PATIENT SLEPT WELL DURING THIS SHIFT. PT IS ALERT/ORIENTED X2, FORGETFUL. PT WITH RESENDIZ TO DEPENDENT DRAIN WITH YELLOW URINE. PT DENIES NEED FOR PAIN MEDICATION. PT ON ROOM AIR. FREQUENTLY USED ITEMS AND CALL LIGHT WITHIN REACH. SIDERAILS UPX2 AND BED ALARM ON. WILL CONTINUE TO MONITOR.
[2021-04-07 08:05] VITALS: BP 183/86
--- NOTE | 2021-04-07 09:39 | NUR ---
Insurance auth received. Pt discharging to [facility] today, facility to garbage pick up worker and transport between 1230-1. Chart copied. Nurse report number is [phone]. VM left for Pt's dtr. Rapid covid to be completed prior to dc. Per Pt, she only had the 1st covid shot, she does not plan on having the 2nd shot, CM updated DON at SNF.
--- NOTE | 2021-04-07 12:40 | NUR ---
PATIENT DISCHARGED TO [facility]. REPORT CALLED TO LAURA. COPY OF CHART AND DISCHARGE ORDERS GIVEN TO TRANSPORTER. BELONGINGS PACKED BY LASTING MACHINE OPERATOR BED. PATIENT ASSISTED TO WHEELCHAIR. PATIENT LEFT BY WHEELCHAIR VAN AT THIS TIME.
== END 2021-04-07 12:40 | DRG 521 ==
LOC: M.ERS 17:30 → M.ORTHSURG 18:40 → M.TBA-ER 18:40 → M.ORTHSURG 21:18
PROVIDERS: Anesthesiology; Emergency Medicine Emergency Medical Services; Family Medicine; Internal Medicine; Orthopaedic Surgery; ADMIT Internal Medicine; ATTEND Internal Medicine
PROC: 30233K1 Transfusion of Nonautologous Frozen Plasma into Peripheral Vein, Percutaneous Approach (ICD-10-PCS; principal; 2021-03-28)
PROC: 0SRR0JA Replacement of Right Hip Joint, Femoral Surface with Synthetic Substitute, Uncemented, Open Approach (ICD-10-PCS; 2021-03-29)
DX: M80.051A Age-related osteoporosis with current pathological fracture, right femur, initial encounter for fracture (principal); N17.0 Acute kidney failure with tubular necrosis; D68.69 Other thrombophilia; Z20.822 Contact with and (suspected) exposure to COVID-19; K21.9 Gastro-esophageal reflux disease without esophagitis; F32.9 Major depressive disorder, single episode, unspecified; F03.90 Unspecified dementia, unspecified severity, without behavioral disturbance, psychotic disturbance, mood disturbance, and anxiety; Z90.710 Acquired absence of both cervix and uterus; Z86.711 Personal history of pulmonary embolism; Z86.718 Personal history of other venous thrombosis and embolism; Z90.49 Acquired absence of other specified parts of digestive tract; Z85.828 Personal history of other malignant neoplasm of skin; Z79.899 Other long term (current) drug therapy; Z79.82 Long term (current) use of aspirin; Z79.01 Long term (current) use of anticoagulants; Z88.0 Allergy status to penicillin; Z88.2 Allergy status to sulfonamides; Z87.891 Personal history of nicotine dependence; Z85.038 Personal history of other malignant neoplasm of large intestine

== ENCOUNTER 2021-05-06 14:23 | Emergency (ER) | payer OTHER ==
[~2021-05-06] VITALS: Ht 165.1 cm; Wt 73.9 kg
--- NOTE | ~2021-05-06 | EMS ---
[facility] [address] [place] [address] EMS Patient Care Report Name: MUKESH KEBEDE [id number] Admission: 05/06/21 Attend Phys: Discharge: 05/06/21 Date of : 34 Report #: [id number] THIS REPORT FOR: //name// Report Transmitted: 05/06/2021 15:07 EMS Care Summary [facility] Incident [id number] @ 05/06/2021 13:36 Incident Location [address] [place] [address] Patient MUKESH KEBEDE Female, 81 Years 1940-02-25 Patient Address [address] [place] [address] Patient History Gastro-Esophageal Reflux Disease (GERD),Depression,Neuropathy, Patient Allergies Penicillin allergy,Sulfa, Patient Medications Acetaminophen, Eliquis, Duloxetine, Gabapentin, Donepezil, Namenda, Meclizine, Nortriptyline, Chief Complaint Dizziness Disposition Transported No Lights/[place] Dispatch Reason No Other Appropriate Choice Transported To [facility] Narrative Med 1 and Engine 2 were dispatched for a [age] year old female c/o hypotension and dizziness. EMS arrived on scene and was greeted at the door by a home health nurse that reported the patient's blood pressure was high and she [address] [place] [address] EMS Patient Care Report Name: MUKESH KEBEDE Room: [facility]#: [id number] Admission: 05/06/21 Attend Phys: Discharge: 05/06/21 Date of : 34 Report #: [id number] has no HX of hypertension. She had taken it several times and every time the result was high. Patient was sitting in the recliner in her living room. She was AOx3, she had strong, regular, bilateral radial pulses. The patient reported she had no idea her blood pressure was high but when she stood up from sitting she became dizzy and light headed. Orthostatic vitals were obtained on the patient and they were positive. Patient was placed on the cardiac it shown NSR. Patient was assisted to the stretcher and secure via seatbelts and moved to the ambulance without incident In the ambulance, IV access was established in the patient's left AC with a 20 GA IV catheter and a saline lock. Blood glucose was obtained with a result of 120 mg/dL. Med 1 went [facility] route to [facility]. Patient was monitored throughout transport with no changes. Hospital report was given via radio with no questions or orders requested or received. Med 1 arrived at the hospital. Patient was moved into the ER via stretcher to room 11. Patient care was transferred to ER staff. Med 1 returned back into service. [id number] KShook Initial Vitals @13:44P: 83,SpO2: 92, @13:43P: 83,BP: 190/107,SpO2: 93, @14:14P: 85,BP: 163/113,SpO2: 93, @13:50P: 83,R: 20,BP: 210/110,Pain: 0/10,Glucose: 120, @13:51P: 86,R: 20,BP: 88/60,Pain: 0/10,GCS: 15,SpO2: 96,Revised Trauma: 11, @14:07P: 82,R: 18,BP: 170/100,GCS: 15,Revised Trauma: 12, Assessments @13:42MENTAL:No Abnormalities,SKIN:No Abnormalities,HEENT:Head/Face: No Abnormalities,Neck/Airway: No Abnormalities,LUNG SOUNDS:General: No Abnormalities,Left Upper: No Abnormalities,Right Upper: No Abnormalities,Left Lower: No Abnormalities,Right Lower: No Abnormalities,ABDOMEN:General: No Abnormalities,Left Upper: No Abnormalities,Right Upper: No Abnormalities,Left Lower: No Abnormalities,Right Lower: No Abnormalities,PELVIS//GI:EXTREMITIES:Left Arm: No Abnormalities,Right Arm: No Abnormalities,Left Leg: No Abnormalities,Right Leg: No Abnormalities,PULSE:NEURO:No Abnormalities, Impression Orthostatic Hypotension Procedures @13:48Saline Lock 10cc (20 ga) Site: Antecubital-LeftResponse: [place] [address] EMS Patient Care Report Name: LUL KEBEDEJORIE Viky [facility] [id number] Admission: 05/06/21 Attend Phys: Discharge: 05/06/21 Date of : 34 Report #: [id number] UnchangedSucceeded Timeline 13:36,Call Received 13:36,Dispatched 13:36,En Route 13:39,On Scene 13:40,At Patient 13:43,BP: 190/107 M,PULSE: 83,RR: R,SPO2: 93 Ox,ETCO2: ,BG: ,PAIN: ,GCS: , 13:44,BP: / M,PULSE: 83,RR: R,SPO2: 92 Ox,ETCO2: ,BG: ,PAIN: ,GCS: , 13:48,Saline Lock 10cc 20 ga Site: Antecubital-Left,Response: UnchangedSucceeded, 13:50,BP: 210/110 M,PULSE: 83,RR: 20 R,SPO2: Ox,ETCO2: ,B,PAIN: 0,GCS: , 13:51,BP: 88/60 M,PULSE: 86,RR: 20 R,SPO2: 96 Ox,ETCO2: ,BG: ,PAIN: 0,GCS: 15, 13:56,Depart Scene 14:07,BP: 170/100 M,PULSE: 82,RR: 18 R,SPO2: Ox,ETCO2: ,BG: ,PAIN: ,GCS: 15, 14:14,BP: 163/113 M,PULSE: 85,RR: R,SPO2: 93 Ox,ETCO2: ,BG: ,PAIN: ,GCS: , 14:20,At Destination 14:53,Call Closed 14:53,In District Disclaimer v1.1 Copyright 2020 [employer] This EMS Care Summary contains data elements from the applicable legal record (which may be displayed differently). It is designed to provide pertinent information for the following purposes: continuity of care, clinical quality, and state data reporting. The complete legal record is available to ED staff and administrators of the receiving hospital in [employer]'s Patient Tracker. All data is provided "as is."
[~2021-05-06 14:23] MED LIST changes: +ELIQUIS5 MG PO
[2021-05-06 14:44] LABS: ABSOLUTE EOSINOPHILS 0.1 thou/uL (0.0-0.7); ABSOLUTE LYMPHOCYTES 1.4 thou/uL (0.8-5.3); ABSOLUTE MONOCYTES 0.4 thou/uL (0.0-1.2); ABSOLUTE NEUTROPHILS 5.3 thou/uL (1.6-8.1); BASOPHILS 0.4 %; EOSINOPHILS 1.3 %; HEMATOCRIT 33.7 % (37.0-47.0); HEMOGLOBIN 11.3 gm/dL (12.0-15.0); LYMPHOCYTES 19.9 %; MCH 31.9 pg (26.0-34.0); MCHC 33.4 g/dL (28.0-37.0); MCV 95.6 fL (80.0-100.0); MONOCYTES 5.6 %; MPV 7.6 fl. (7.2-11.1); NUCLEATED RBCS 0 /100WBC; PLATELET COUNT* 242 thou/uL (150-400); POLYS 72.8 %; RBC 3.53 mil/uL (4.20-5.00); WBC 7.2 thou/uL (4.0-11.0)
[2021-05-06 14:52] LABS: CALCIUM 9.2 mg/dL (8.5-10.1); CREATININE 1.6 mg/dL (0.6-1.3); POTASSIUM 3.8 mmol/L (3.5-5.1)
[2021-05-06 15:10] LABS: ALBUMIN 3.6 g/dL (3.4-5.0); TOTAL BILIRUBIN 0.4 mg/dL (<0.1-1.0); TOTAL PROTEIN 6.8 g/dL (6.4-8.2)
[2021-05-06 15:11] LABS: URINE BILIRUBIN NEGATIVE (Negative); URINE BLOOD NEGATIVE (Negative); URINE CLARITY CLEAR; URINE COLOR YELLOW; URINE GLUCOSE-RANDOM NEGATIVE (Negative); URINE KETONES NEGATIVE (Negative); URINE LEUKOCYTES-REFLEX NEGATIVE (Negative); URINE NITRITE-REFLEX NEGATIVE (Negative); URINE PROTEIN TRACE (Negative); URINE UROBILINOGEN 0.2 E.U./dl (0.2-1.0)
[2021-05-06 15:54] VITALS: BP 163/82
--- NOTE | 2021-05-06 16:45 | EKG ---
[place] [address] ELECTROCARDIOGRAM REPORT Name: LUL KEBEDEJOLINNEA Salmon Room: [facility]#: [id number] Admission: 05/06/21 Attend Phys: Discharge: 05/06/21 Date of : 34 Date of Service: 05/06/21 1433 Report #: [id number] THIS REPORT FOR: //name// [facility] ED Test Date: 2021-05-06 Test Time: 14:33:22 Pat Name: MUKESH KEBEDE Department: Room: Gender: F Bronc Buster: : 1930 Requested By: Sincere Mariee Order Number: [id number] MD: Damian Alejandro Measurements Intervals [place] Rate: 82 P: 44 MA: 162 QRS: -45 QRSD: 116 T: 89 QT: 366 QTc: 428 Interpretive Statements Sinus rhythm Anteroseptal infarct, old, possible Ventricular premature complex LVH with IVCD, LAD and secondary repol abnrm ST elevation, early repole lesion Compared to ECG 03/27/2021 18:33:07 Late transition noted Possible myocardial infarction noted, old Electronically Signed On 05-06-2021 16:45:20 CDT by Damian Alejandro [email or web address] <ELECTRONICALLY SIGNED> By: Damian Alejandro MD, [facility] 05/06/21 1645 1433 1433 Damian Alejandro MD, [facility] /EPI
== END 2021-05-06 15:55 | disposition home health service (06) ==
LOC: M.ERS 14:23
PROVIDERS: Family Medicine
DX: R53.1 Weakness (principal); R42 Dizziness and giddiness; F17.210 Nicotine dependence, cigarettes, uncomplicated; Z88.0 Allergy status to penicillin; Z88.2 Allergy status to sulfonamides